=== PATIENT | female | born 1990 | race Caucasian/White ===

== ENCOUNTER → 2017-12-07 | Outpatient (CLI) | payer BC ==
[2017-12-07 16:28] LABS: ADD MAN DIFF? NO
[2017-12-07 16:30] LABS: WHITE BLOOD COUNT 7.9 10^3/ul (4.8-10.8)
[2017-12-07 16:30] LABS: BASOPHIL # 0.1 10^3/ul (0.0-0.1); BASOPHILS % 0.6 % (0.0-2.0); EOSINOPHILS # 0.2 10^3/ul (0.0-0.5); EOSINOPHILS % 2.8 % (0.0-7.0); HEMATOCRIT 36.2 % (37.0-47.0); HEMOGLOBIN 12.3 g/dl (12.0-16.0); LYMPHOCYTES # 2.8 10^3/ul (0.8-2.9); MEAN CORPUSCULAR HEMOGLOBIN 29.5 pg (29.0-33.0); MEAN CORPUSCULAR VOLUME 86.8 fl (82.0-101.0); MEAN PLATELET VOLUME 10.8 fl (7.4-10.4); MONOCYTE # 0.5 10^3/ul (0.3-0.9); NEUTROPHIL # 4.4 10^3/ul (1.6-7.5); NEUTROPHILS % 55.5 % (39.0-77.0); PLATELET COUNT 247 10^3/UL (140-415); RED BLOOD COUNT 4.17 10^6/ul (4.20-5.40); RED CELL DISTRIBUTION WIDTH 12.8 % (11.5-14.5)
[2017-12-07 16:35] LABS: ADD UMIC YES; UR ASCORBIC ACID NEGATIVE (NEGATIVE); UR BILIRUBIN (Dip) NEGATIVE (NEGATIVE); UR BLOOD (Dip) 3+ mg/dL (NEGATIVE); UR CLARITY CLEAR (CLEAR); UR COLOR YELLOW (YELLOW); UR GLUCOSE (Dip) NEGATIVE (NEGATIVE); UR KETONES (Dip) NEGATIVE (NEGATIVE); UR LEUKOCYTE ESTERASE (Dip) NEGATIVE Leu/ul (NEGATIVE); UR NITRITE (Dip) NEGATIVE (NEGATIVE); UR RBC 22 /HPF (0-5); UR TOTAL PROTEIN (Dip) NEGATIVE (NEGATIVE); UR UROBILINOGEN (Dip) NEGATIVE (NEGATIVE); UR WBC 3 /HPF (0-5)
[2017-12-07 16:53] LABS: ALANINE AMINOTRANSFERASE 27 IU/L (13-69); ALBUMIN 4.4 g/dl (3.3-4.9); ALBUMIN/GLOBULIN RATIO 1.25; ALKALINE PHOSPHATASE 80 IU/L (42-121); ANION GAP 16 (8-16); ASPARTATE AMINO TRANSFERASE 18 IU/L (15-46); BILIRUBIN,INDIRECT 0.1 mg/dl (0-1.1); BILIRUBIN,TOTAL 0.1 mg/dl (0.2-1.3); BLOOD UREA NITROGEN 9 mg/dl (7-20); CALCIUM 8.8 mg/dl (8.4-10.2); CARBON DIOXIDE 25 mmol/L (21-31); CHLORIDE 105 mmol/L (97-110); CREATININE 0.65 mg/dl (0.44-1.00); GLUCOSE 94 mg/dl (70-220); SODIUM 142 mmol/L (135-144); TOTAL PROTEIN 7.9 g/dl (6.1-8.1)
== END | disposition home or self-care (01) ==
LOC: LAB 07:45
DX: K80.20 Calculus of gallbladder without cholecystitis without obstruction (principal); N20.0 Calculus of kidney; R10.9 Unspecified abdominal pain
CPT/HCPCS: 80053; 81001; 85025; 87086

== ENCOUNTER → 2017-12-20 | Outpatient (CLI) | payer BC | END | disposition home or self-care (01) | LOC: LAB 12:30 | DX: K80.20 Calculus of gallbladder without cholecystitis without obstruction (principal); N20.0 Calculus of kidney; R10.9 Unspecified abdominal pain | CPT/HCPCS: 76700; 76856 ==

== ENCOUNTER 2018-01-07 07:25 | Day surgery (SDC) | payer BC ==
[2018-01-07] MEDS ORDERED: PROPOFOL 40 ML (08:22)
== END 2018-01-07 11:18 | disposition home or self-care (01) ==
LOC: GIL 07:25
DX: K64.8 Other hemorrhoids (principal)
CPT/HCPCS: 45378

== ENCOUNTER 2018-03-27 13:21 | Emergency (ER) | payer BC | END 2018-03-27 19:14 | disposition home or self-care (01) | LOC: E/R 13:21 → FTE 19:14 | DX: M25.531 Pain in right wrist (principal) | CPT/HCPCS: 29125; 73110-RT; 73130-RT; 99283-25 ==

== ENCOUNTER 2018-05-05 12:08 | Emergency (ER) | payer BC ==
[2018-05-05] MEDS: ALBUTEROL 0.083% (NEB) 2.5 MG/3 ML AMP NEB (12:26)
[2018-05-05] MEDS: DEXAMETHASONE 10 MG/ML 1 ML INJ IM (12:27)
== END 2018-05-05 13:20 | disposition home or self-care (01) ==
LOC: FTE 12:08
DX: J20.9 Acute bronchitis, unspecified (principal); R05 Cough
CPT/HCPCS: 94664; 96372; 99284-25

== ENCOUNTER → 2018-06-20 | Outpatient (CLI) | payer BC | END | disposition home or self-care (01) | LOC: U/S 12:54 | DX: R10.2 Pelvic and perineal pain (principal) | CPT/HCPCS: 76830; 76856 ==

== ENCOUNTER 2018-11-21 16:20 | Emergency (ER) | payer BC | END 2018-11-21 18:17 | disposition home or self-care (01) | LOC: FTE 16:20 | DX: J03.90 Acute tonsillitis, unspecified (principal) | CPT/HCPCS: 99283 ==

== ENCOUNTER → 2019-01-13 | Outpatient (CLI) | payer BC ==
[2019-01-13 07:32] LABS: ADD MAN DIFF? NO
[2019-01-13 07:41] LABS: BASOPHILS % 0.5 % (0.0-2.0); EOSINOPHILS # 0.2 10^3/ul (0.0-0.5); EOSINOPHILS % 2.7 % (0.0-7.0); HEMATOCRIT 40.1 % (37.0-47.0); HEMOGLOBIN 13.1 g/dl (12.0-16.0); LYMPHOCYTES # 2.2 10^3/ul (0.8-2.9); LYMPHOCYTES % 26.6 % (15.0-51.0); MEAN CORPUSCULAR HEMOGLOBIN 27.8 pg (29.0-33.0); MEAN CORPUSCULAR HGB CONC 32.7 g/dl (32.0-37.0); MEAN CORPUSCULAR VOLUME 85.1 fl (82.0-101.0); MEAN PLATELET VOLUME 11.2 fl (7.4-10.4); MONOCYTE # 0.5 10^3/ul (0.3-0.9); NEUTROPHIL # 5.3 10^3/ul (1.6-7.5); PLATELET COUNT 254 10^3/UL (140-415); RED BLOOD COUNT 4.71 10^6/ul (4.20-5.40); RED CELL DISTRIBUTION WIDTH 12.7 % (11.5-14.5)
[2019-01-13 07:41] LABS: WHITE BLOOD COUNT 8.2 10^3/ul (4.8-10.8)
[2019-01-13 07:49] LABS: HEMOGLOBIN A1C 4.8 % (0-5.9)
[2019-01-13 08:10] LABS: ALANINE AMINOTRANSFERASE 21 IU/L (13-69); ALBUMIN 4.7 g/dl (3.3-4.9); ALBUMIN/GLOBULIN RATIO 1.17; ALKALINE PHOSPHATASE 94 IU/L (42-121); ANION GAP 14 (5-13); ASPARTATE AMINO TRANSFERASE 20 IU/L (15-46); BILIRUBIN,INDIRECT 0.4 mg/dl (0-1.1); BILIRUBIN,TOTAL 0.4 mg/dl (0.2-1.3); BLOOD UREA NITROGEN 11 mg/dl (7-20); CALCIUM 9.5 mg/dl (8.4-10.2); CARBON DIOXIDE 24 mmol/L (21-31); CHLORIDE 103 mmol/L (97-110); CREATININE 0.59 mg/dl (0.44-1.00); Estimated GFR > 60 mL/min (>60); GLUCOSE 85 mg/dl (70-220); SODIUM 141 mmol/L (135-144); TOTAL PROTEIN 8.7 g/dl (6.1-8.1)
[2019-01-13 08:50] LABS: ERYTHROCYTE SEDIMENTATION RATE 23 mm/Hr (0-20)
== END | disposition home or self-care (01) ==
LOC: LAB 07:16
DX: D64.9 Anemia, unspecified (principal); R73.03 Prediabetes; E55.9 Vitamin D deficiency, unspecified
CPT/HCPCS: 80053; 82306; 83036; 85025; 85651

== ENCOUNTER 2019-03-15 15:59 | Emergency (ER) | payer BC ==
[2019-03-15 17:10] LABS: ADD MAN DIFF? NO
[2019-03-15 17:11] LABS: BASOPHILS % 0.4 % (0.0-2.0); EOSINOPHILS # 0.2 10^3/ul (0.0-0.5); EOSINOPHILS % 1.8 % (0.0-7.0); HEMOGLOBIN 13.1 g/dl (12.0-16.0); LYMPHOCYTES # 2.7 10^3/ul (0.8-2.9); LYMPHOCYTES % 26.4 % (15.0-51.0); MEAN CORPUSCULAR HEMOGLOBIN 27.6 pg (29.0-33.0); MEAN CORPUSCULAR VOLUME 86.3 fl (82.0-101.0); MEAN PLATELET VOLUME 11.3 fl (7.4-10.4); MONOCYTE # 0.6 10^3/ul (0.3-0.9); MONOCYTES % 5.9 % (0.0-11.0); NEUTROPHIL # 6.8 10^3/ul (1.6-7.5); NEUTROPHILS % 65.2 % (39.0-77.0); PLATELET COUNT 267 10^3/UL (140-415); RED BLOOD COUNT 4.75 10^6/ul (4.20-5.40); RED CELL DISTRIBUTION WIDTH 12.4 % (11.5-14.5)
[2019-03-15 17:11] LABS: WHITE BLOOD COUNT 10.4 10^3/ul (4.8-10.8)
[2019-03-15] MEDS: KETOROLAC 30 MG INJ IM (17:13)
[2019-03-15] MEDS: ONDANSETRON 4 MG TAB PO (17:27)
[2019-03-15 17:30] LABS: ADD UMIC YES; UR ASCORBIC ACID NEGATIVE (NEGATIVE); UR BACTERIA FEW /HPF (NONE SEEN); UR BILIRUBIN (Dip) NEGATIVE (NEGATIVE); UR BLOOD (Dip) 1+ mg/dL (NEGATIVE); UR CLARITY SLIGHTLY CLOUDY (CLEAR); UR COLOR YELLOW (YELLOW); UR GLUCOSE (Dip) NEGATIVE (NEGATIVE); UR KETONES (Dip) TRACE mg/dL (NEGATIVE); UR LEUKOCYTE ESTERASE (Dip) NEGATIVE Leu/ul (NEGATIVE); UR NITRITE (Dip) NEGATIVE (NEGATIVE); UR RBC 4 /HPF (0-5); UR SPECIFIC GRAVITY (Dip) 1.021 (1.003-1.030); UR SQUAMOUS EPITHELIAL CELL FEW /HPF (FEW); UR TOTAL PROTEIN (Dip) NEGATIVE (NEGATIVE); UR UROBILINOGEN (Dip) NEGATIVE (NEGATIVE); UR WBC 6 /HPF (0-5)
[2019-03-15 17:45] LABS: ALANINE AMINOTRANSFERASE 8 IU/L (13-69); ALBUMIN 4.8 g/dl (3.3-4.9); ALBUMIN/GLOBULIN RATIO 1.26; ALKALINE PHOSPHATASE 101 IU/L (42-121); ANION GAP 11 (5-13); ASPARTATE AMINO TRANSFERASE 21 IU/L (15-46); BILIRUBIN,INDIRECT 0.3 mg/dl (0-1.1); BILIRUBIN,TOTAL 0.3 mg/dl (0.2-1.3); BLOOD UREA NITROGEN 9 mg/dl (7-20); CALCIUM 9.7 mg/dl (8.4-10.2); CARBON DIOXIDE 27 mmol/L (21-31); CHLORIDE 104 mmol/L (97-110); CREATININE 0.61 mg/dl (0.44-1.00); Estimated GFR > 60 mL/min (>60); GLUCOSE 91 mg/dl (70-220); LIPASE 76 U/L (23-300); SODIUM 142 mmol/L (135-144); TOTAL PROTEIN 8.6 g/dl (6.1-8.1)
== END 2019-03-15 18:26 | disposition home or self-care (01) ==
LOC: FTE 15:59
DX: R10.31 Right lower quadrant pain (principal); R11.0 Nausea
CPT/HCPCS: 36415; 74176; 80053; 81001; 81025; 83690; 85025; 96372; 99285-25

== ENCOUNTER → 2019-03-17 | Outpatient (CLI) | payer BC ==
[2019-03-17 12:31] LABS: ADD MAN DIFF? NO
[2019-03-17 12:34] LABS: ADD UMIC NO; UR ASCORBIC ACID NEGATIVE (NEGATIVE); UR BILIRUBIN (Dip) NEGATIVE (NEGATIVE); UR BLOOD (Dip) NEGATIVE (NEGATIVE); UR CLARITY CLEAR (CLEAR); UR COLOR COLORLESS (YELLOW); UR GLUCOSE (Dip) NEGATIVE (NEGATIVE); UR KETONES (Dip) NEGATIVE (NEGATIVE); UR LEUKOCYTE ESTERASE (Dip) NEGATIVE Leu/ul (NEGATIVE); UR NITRITE (Dip) NEGATIVE (NEGATIVE); UR SPECIFIC GRAVITY (Dip) 1.003 (1.003-1.030); UR TOTAL PROTEIN (Dip) NEGATIVE (NEGATIVE); UR UROBILINOGEN (Dip) NEGATIVE (NEGATIVE)
[2019-03-17 12:43] LABS: WHITE BLOOD COUNT 9.1 10^3/ul (4.8-10.8)
[2019-03-17 12:43] LABS: BASOPHILS % 0.4 % (0.0-2.0); EOSINOPHILS # 0.2 10^3/ul (0.0-0.5); EOSINOPHILS % 2.4 % (0.0-7.0); HEMATOCRIT 38.2 % (37.0-47.0); HEMOGLOBIN 12.2 g/dl (12.0-16.0); LYMPHOCYTES # 2.5 10^3/ul (0.8-2.9); MEAN CORPUSCULAR HEMOGLOBIN 27.9 pg (29.0-33.0); MEAN CORPUSCULAR HGB CONC 31.9 g/dl (32.0-37.0); MEAN CORPUSCULAR VOLUME 87.2 fl (82.0-101.0); MEAN PLATELET VOLUME 11.4 fl (7.4-10.4); MONOCYTE # 0.5 10^3/ul (0.3-0.9); MONOCYTES % 5.5 % (0.0-11.0); NEUTROPHIL # 5.9 10^3/ul (1.6-7.5); NEUTROPHILS % 64.4 % (39.0-77.0); PLATELET COUNT 256 10^3/UL (140-415); RED BLOOD COUNT 4.38 10^6/ul (4.20-5.40); RED CELL DISTRIBUTION WIDTH 12.6 % (11.5-14.5)
[2019-03-17 12:51] LABS: ANION GAP 9 (5-13); BLOOD UREA NITROGEN 9 mg/dl (7-20); CALCIUM 9.1 mg/dl (8.4-10.2); CARBON DIOXIDE 26 mmol/L (21-31); CHLORIDE 105 mmol/L (97-110); CREATININE 0.59 mg/dl (0.44-1.00); Estimated GFR > 60 mL/min (>60); GLUCOSE 88 mg/dl (70-220); POTASSIUM 4.3 mmol/L (3.5-5.1); SODIUM 140 mmol/L (135-144)
== END | disposition home or self-care (01) ==
LOC: LAB 12:00
DX: N39.0 Urinary tract infection, site not specified (principal)
CPT/HCPCS: 80048; 81003; 85025; 87086

== ENCOUNTER → 2019-07-03 | Outpatient (CLI) | payer BC | END | disposition home or self-care (01) | LOC: LAB 16:16 | DX: O20.0 Threatened abortion (principal); Z3A.00 Weeks of gestation of pregnancy not specified | CPT/HCPCS: 84702 ==

== ENCOUNTER → 2019-07-12 | Outpatient (CLI) | payer BC ==
[2019-07-14 13:57] LABS: PROGESTERONE 14.2 ng/mL
== END | disposition home or self-care (01) ==
LOC: LAB 15:01
DX: O20.0 Threatened abortion (principal); Z3A.00 Weeks of gestation of pregnancy not specified
CPT/HCPCS: 84144; 84702

== ENCOUNTER 2019-07-14 10:21 | Day surgery (SDC) | payer BC ==
[2019-07-13] MEDS: LACTATED RINGER'S 1,000 ML IV (18:30)
[2019-07-14] MEDS ORDERED: ONDANSETRON 4 MG INJ (12:15)
[2019-07-14] MEDS ORDERED: KETOROLAC 30 MG INJ (12:15)
[2019-07-14] MEDS ORDERED: PROPOFOL 20 ML (12:15)
[2019-07-14] MEDS ORDERED: FENTAnyl 50 MCG/ML VIAL (12:15)
[2019-07-14] MEDS ORDERED: DEXAMETHASONE 4 MG/ML 5 ML INJ (12:15)
[2019-07-14] MEDS ORDERED: CEFAZOLIN 1 GM INJ (12:15)
[2019-07-14] MEDS ORDERED: MIDAZOLAM 1 MG/ML 2 ML INJ (12:15)
[2019-07-14] MEDS ORDERED: METOCLOPRAMIDE 10 MG INJ (12:15)
[2019-07-14] MEDS ORDERED: EPHEDrine 25 MG/5 ML SYG IV (12:30)
[2019-07-14] MEDS ORDERED: FENTAnyl 50 MCG/ML VIAL IV ×2 (12:30)
[2019-07-14] MEDS ORDERED: HYDROmorphONE 1 MG/5 ML IV SYRINGE IV (12:30)
[2019-07-14] MEDS ORDERED: METOCLOPRAMIDE 10 MG INJ IV (12:30)
[2019-07-14] MEDS: HYDROmorphONE 1 MG/5 ML IV SYRINGE IV ×2 (13:47→14:03)
[2019-07-14] MEDS: ONDANSETRON 4 MG INJ IV (14:25)
[2019-07-14] MEDS: FENTAnyl 50 MCG/ML VIAL IV (14:29)
[2019-07-14] MEDS: KETOROLAC 30 MG INJ IV (14:41)
[2019-07-14] MEDS: OXYCODONE/ACETAMINOPHEN (5/325) TAB PO (15:39)
== END 2019-07-14 15:45 | disposition home or self-care (01) ==
LOC: SDS 10:21
DX: O02.1 Missed abortion (principal); Z3A.01 Less than 8 weeks gestation of pregnancy
CPT/HCPCS: 59820; 88305; 88342

== ENCOUNTER 2019-07-19 16:58 | Emergency (ER) | payer BC ==
[2019-07-19] MEDS: KETOROLAC 30 MG INJ IM (17:46)
[2019-07-19 18:01] LABS: ADD UMIC YES; UR ASCORBIC ACID NEGATIVE (NEGATIVE); UR BILIRUBIN (Dip) NEGATIVE (NEGATIVE); UR BLOOD (Dip) 3+ mg/dL (NEGATIVE); UR CLARITY CLEAR (CLEAR); UR COLOR YELLOW (YELLOW); UR GLUCOSE (Dip) NEGATIVE (NEGATIVE); UR KETONES (Dip) NEGATIVE (NEGATIVE); UR LEUKOCYTE ESTERASE (Dip) TRACE Leu/ul (NEGATIVE); UR NITRITE (Dip) NEGATIVE (NEGATIVE); UR RBC 29 /HPF (0-5); UR SPECIFIC GRAVITY (Dip) 1.023 (1.003-1.030); UR TOTAL PROTEIN (Dip) NEGATIVE (NEGATIVE); UR UROBILINOGEN (Dip) NEGATIVE (NEGATIVE); UR WBC 2 /HPF (0-5)
== END 2019-07-19 21:00 | disposition home or self-care (01) ==
LOC: FTE 16:58
DX: N93.9 Abnormal uterine and vaginal bleeding, unspecified (principal)
CPT/HCPCS: 36415; 76830; 76856; 81001; 84702; 87086; 96372; 99285-25

== ENCOUNTER → 2019-07-26 | Outpatient (CLI) | payer BC | END | disposition home or self-care (01) | LOC: LAB 14:05 | DX: O01.0 Classical hydatidiform mole (principal) | CPT/HCPCS: 84702 ==